=== PATIENT | female | born 1980 | race Hispanic/Latino ===

== ENCOUNTER 2017-09-04 09:09 | Day surgery (SDC) | payer OTHER ==
[2017-08-26 13:52] VITALS: BMI 20.6
[2017-09-04 10:22] LABS: HEMOGLOBIN 13.7 g/dL (12.0-16.0); MEAN CELL VOLUME 90.1 fl (81.0-99.0); MEAN CORPUSCULAR HGB CONC 34.4 g/dL (33.0-37.0); RBC 4.41 Mil/uL (3.80-5.20); RED CELL DISTRIBUTION WIDTH 11.9 % (11.5-14.5); WHITE BLOOD COUNT 5.2 K/uL (4.8-10.8)
[2017-09-04] MEDS ORDERED: Propofol 10 mg/ml Inj (20 ML) ONE (10:48)
[2017-09-04] MEDS ORDERED: ePHEDrine 50 mg/ml Inj ONE (10:48)
[2017-09-04] MEDS ORDERED: Midazolam 2 MG/2 ML VIAL ONE (10:48)
[2017-09-04] MEDS ORDERED: Rocuronium 10 mg/ml (5 ml) ONE (10:49)
[2017-09-04] MEDS ORDERED: Lidocaine 4% (Laryng-O-Jet) Kit MM ONE (10:49)
[2017-09-04] MEDS ORDERED: Succinylcholine 200 mg/10 ml Inj IV ONE (10:49)
[2017-09-04] MEDS ORDERED: Lactated Ringer's 500 ML IV ONE ×4 (11:35→14:10)
[2017-09-04] MEDS: Bupivacaine 0.5% Inj(30mL) ONE ×2 (12:07→12:20)
[2017-09-04] MEDS ORDERED: Oxycodone/Acetaminophen 5/325 mg Tab PO PRN (13:39)
[2017-09-04] MEDS ORDERED: Lactated Ringer's 1,000 ML IV SCH ×2 (13:45→14:15)
[2017-09-04] MEDS ORDERED: HYDROmorphone 0.5 mg/0.5 ml ISec ONE ×2 (14:13→14:31)
[2017-09-04] MEDS: HYDROmorphone 0.5 mg/0.5 ml ISec IVP PRN ×5 (14:13→14:46)
[2017-09-04] MEDS ORDERED: DiphenhydrAMINE 50 mg/ml Inj IVP PRN (14:15)
[2017-09-04] MEDS ORDERED: Lactated Ringer's 1,000 ML IV ONE (15:10)
[2017-09-04 17:16] VITALS: RESP 18; O2SAT 99
[2017-09-04 19:32] VITALS: BP 103/66; PULSE 77; TEMP 97.6
--- NOTE | 2017-09-08 09:54 | PCM.OP ---
Operative Report - Operative Report Date of Surgery/Procedure: 09/04/17 Time of Surgery/Procedure: 10:00 Surgeon: Dr. Jayro Blackmon Nurse Case Manager: Dr. Ravindra Pereira Anesthesia/Sedation: general/Dr. Conti Pre-Operative Diagnosis: Abdominal pain and endometriosis Post-Operative Diagnosis: singificant intestinal adhesions and invovlement of the rectum with endometriosis Indication for Surgery: as above Operative Findings: as above Procedure/Operation Description: 1-Extensive lysis of intestinal adhesions. 2- Excison manda-rectsal endometriosis with closure of the retal wall. Brief History: This is a 37 year old patinet already brought to the operating room by Dr. Pereira when he noted singificant intestinal adhesions of the sigmoid and rectum with endometriosis. He requested an intraoperative general surgery consultation. Description of the Procedure: The patinet had already been robotically explored (separate dictaiton Dr. Pereira). After takin control of the robotic console the sigmoid was lysed from the left abdomial wall into the pelvis. Extensive adhesions were then lysed from the rectum above the peeritoneal reflection and the pelvis was opened with the ability now to retract the large bowel cephalad. A deep lesion was noted in the diatl rectum and was circumferentially circumscribed with electrocautery. The lesion was then removed en-bloc with blunt and sharp dissction. This was marked and sent to pathology as a separate specimen. The colon was then closed with interrupted 3-0 vicryl. The operation was then turned over to Dr. Pereira (separate dictation Dr. Pereira). Estimated Blood Loss: 10 cc Complications: none Discharge & Condition: stable
--- NOTE | 2017-09-10 15:23 | DS ---
ADMIT DATE: 09/04/2017 DISCHARGE DATE: 09/04/2017 CONDITION: Stable DISCHARGE TO: Home DIET: Clear liquid then resume regular diet ACTIVITY: As tolerated WOUND CARE: keep dressing clean and dry for 3 days MEDICATION: continue home medication, take prescribed medication as ordered FOLLOW UP: 2 weeks, call office for appointment REFERRAL: None Randall MONTANEZ, Ravindra CARNES
--- NOTE | 2017-09-11 11:23 | CP.PCM.PN ---
Subjective - Date & Time of Evaluation Date of Evaluation: 09/11/17 Time of Evaluation: 11:22 - Subjective Subjective: Patient was administered 200 mcg fentanyl in the operating room as recorded. However, the pull of the second vial was from patient [id number]. Objective - Vital Signs/Intake and Output Vital Signs (last 24 hours): Temp Pulse Resp BP Pulse Ox 97.6 F 77 18 103/66 99 09/04/17 18:50 09/04/17 18:50 09/04/17 18:50 09/04/17 18:50 09/04/17 18:50 - Labs Labs: 09/04/17 09:49
--- NOTE | 2017-09-16 19:21 | OP ---
PROCEDURE DATE: 09/04/2017 PREOPERATIVE DIAGNOSES: Pelvic pain, dysmenorrhea, dyspareunia, and bowel pain. POSTOPERATIVE DIAGNOSES: Pelvic pain, dysmenorrhea, dyspareunia, bowel pain, pelvic endometriosis, and rectal endometriosis. PROCEDURE PERFORMED: Cystoscopy with bilateral urethral catheterization and injection of ICG dye, hysteroscopy diagnostic, operative robotic laparoscopy, bilateral ureterolysis, excision of endometriosis and is to be dictated separately by Dr. Blackmon excision of anterior rectal mass. SURGEON: Ravindra Pereira MD DAIRY HUSBANDRY WORKER: Jayro Blackmon MD from General Surgery. TYPE OF ANESTHESIA: General endotracheal. ESTIMATED BLOOD LOSS: Minimal. COMPLICATIONS: None. INDICATION FOR THE PROCEDURE: The patient is a 37-year-old female who presents with a history of pelvic pain, dysmenorrhea, and pain with bowel movements. Upon examination, she had evident signs of peritoneal signs secondary to endometriosis. She was counseled with regards to risks and benefits of the procedure and she was taken to the OR for surgery. She signed the consent and the procedure was started. DESCRIPTION OF PROCEDURE: After adequate anesthesia was obtained, the patient was placed in a dorsal lithotomy position. She was prepped and draped, the surgeon gowned and gloved. At this point, attention was placed on hyper-extending and hyper-flexing the hips and that every area of the patient with subjective pressure would be extensively padded. At this point, a time-out was taken according to hospital procedure and the procedure was started. The cystoscope was inserted into the bladder under direct visualization. The bladder appear to be normal with no evidence of lesions or tumors. Both ureteral orifices were in the normal anatomical position. At this point, the left ureter was catheterized using a 5-Japanese open-ended catheter all the way to the distal ureter and 5 mL of IC-Green were injected. On the contralateral side, again the ureter was catheterized to be distal ureter and 5 mL of IC-Green were injected. At this point, attention was then after placing a Witt in the bladder on the vaginal area where a speculum was placed in the vagina. The anterior lip of the cervix was grasped and the cervix was gently dilated and hysteroscope was inserted in the uterine cavity that appeared to be normal with no lesions. At this point, attention was on the abdominal side where an open laparoscopy was performed by making incision on the skin and entering the fascia in the sharp fashion, the peritoneum in the blunt fashion. The cannula was inserted. The abdomen was insufflated. Three additional ports were placed under the direct visualization, left upper quadrant, left mid quadrant, and right upper quadrant. At this point, da Lincoln Xi robot was docked and the procedure was started. Findings were as follows, there were multiple areas of inflammatory lesions as well as endometriotic lesions both on the posterior cervix, left pelvic sidewall, and right pelvic sidewall as well as an anterior rectal lesion. At this point, attention was on the right hand side where utilizing the robotic grasper and scissors, an area of endometriosis was excised in the left ovarian fossa with great care to avoid the ureter utilizing florescent technology. In addition, area of endometriosis was excised from the posterior cervix also with great care to avoid the bowel. At this point, attention was on the right pelvic sidewall after elevated the ovary, the retroperitoneum was entered and the right ureter was lateralized and a full dissection was performed, excising an area of endometriosis that was also sent to pathology. At this point, an area of endometriosis on the rectum was also identified and it was excised by general surgery who dictated separately. At this point, plasma energy was used to ablate area of endometriosis that are appearing inflamed, but not affected by endometriosis. These were the area, which had a patina of inflammatory material in the back of the uterus and in the posterior cul-de-sac. At this point, it was checked for hemostasis and that are appeared to be excellent. The da Lincoln robot was removed. The abdomen was desufflated. The instruments were removed. The cannula were removed and the incisions were closed in layers with 0 PDS for the fascia and 4-0 Monocryl for the skin. At the end of the procedure, all tapes and instrument counts were correct. The patient tolerated the procedure well and was taken to recovery room in excellent condition. Ravindra Pereira MD TRICE
== END 2017-09-04 19:55 | disposition home or self-care (01) ==
LOC: H.OPSURG 09:09
PROVIDERS: ATTEND Obstetrics & Gynecology Reproductive Endocrinology
DX: R10.2 Pelvic and perineal pain (principal); E03.9 Hypothyroidism, unspecified; N94.6 Dysmenorrhea, unspecified; K66.0 Peritoneal adhesions (postprocedural) (postinfection); N80.5 Endometriosis of intestine; N80.8 Other endometriosis
CPT/HCPCS: 36415; 44180; 58662; 85027; 86850; 86900; 88305; C1729; J0330; J0690; J1170; J2001; J2250; J2704; J2765; J3010; J7030; J7040; J7120